=== PATIENT | female | born 1940 | race Caucasian/White ===

== ENCOUNTER → 2023-10-21 06:56 | Outpatient (REF) | payer OTHER, SELFPAY | LOC: MRI 06:56 | PROVIDERS: ATTENDING PHYSICIAN Physician Assistant; FAMILY PHYSICIAN Nurse Practitioner Adult Health | DX: M25.60 Stiffness of unspecified joint, not elsewhere classified (principal); M48.00 Spinal stenosis, site unspecified; M48.07 Spinal stenosis, lumbosacral region | CPT/HCPCS: 72148 ==

== ENCOUNTER → 2024-01-11 06:45 | Outpatient (REF) | payer OTHER, SELFPAY | LOC: PAVMRI 06:45 | PROVIDERS: ATTENDING PHYSICIAN Specialist; FAMILY PHYSICIAN Nurse Practitioner Adult Health | DX: M54.12 Radiculopathy, cervical region (principal) | CPT/HCPCS: 72141 ==